=== PATIENT | female | born 1990 | race Caucasian/White ===

== ENCOUNTER 2016-10-22 07:51 | Emergency (ER) | payer OTHER ==
[~2016-10-22] VITALS: Ht 157.5 cm; Wt 68.0 kg
[~2016-10-22 07:51] MED LIST: BACT800T5 PO; CEPH500C3 PO
[2016-10-22 07:52] VITALS: BP 145/86; PULSE 100; RESP 20; TEMP 98.2; O2SAT 98
--- NOTE | 2016-10-22 08:08 | PD ---
HPI Chief Complaint: Oral / Dental Pain or Problem Time Seen by Provider: 08:08 Travel History International Travel<30 days: No Contact w/Intl Traveler<30days: No Traveled to known affect area: No History of Present Illness HPI 26-year-old 31 weeks gravid female presents to the ED for evaluation of 4 day history of upper right dental pain. Gradual onset. Patient endorses several broken teeth and cavities in the area. She denies fever or chills. She denies difficulties swallowing her own secretions. She has been treating with Orajel and Tylenol with only mild improvement of symptoms. Last dose of Tylenol approximately 3 AM. She endorses active movement today. Denies related concerns. Denies chronic health problems, takes vitamins daily. NKDA. PFSH Past Medical History Diminished Hearing: No Immunizations Current: No ?: LMP: 03/18/16 : 3 Para: 1 Miscarriage: 1 : 0 Social History Alcohol Use: No Tobacco Use: No Substance Use: No Allergies-Medications (Allergen,Severity, Reaction): Coded Allergies: No Known Allergies (Verified , 10/22/16) Reported Meds & Prescriptions Reported Meds & Active Scripts Active Magic Mouthwash Adult Liq (Multi-Ingredient Mouthwash/Gargle) 120 Ml Susp 5 Ml SWISH-SWAL ACHS Each 5mL contains: Nystatin 200,000units, Diphenhydramine 4.25mg, Viscous Lidocaine 10mg, Jackson syrup 0.8 mL Augmentin (Amoxicillin-Clavulanate) 875-125 mg Tab 875 Mg PO BID not for use in CrCl <30 ml/min. Review of Systems Except as stated in HPI: all other systems reviewed are Neg Physical Exam Narrative GENERAL: Well-nourished, well-developed tearful female in no acute distress. SKIN: Warm and dry. HEAD: Normocephalic. Atraumatic. EYES: No scleral icterus. No injection or drainage. PERRLA. EOMI. ENT: Pearly kline tympanic membranes bilaterally. Nasal mucosa is moist. Oropharynx without erythema, edema or exudate. The lower palate is soft. Uvula is midline. Airway is patent. DENTAL: Tooth #1 is erupting with mild erythema of the surrounding gingiva. No visible exudates. Multiple dental caries and teeth 2 through 4. NECK: Supple, trachea midline. No JVD or lymphadenopathy. CARDIOVASCULAR: Regular rate and rhythm without murmurs, gallops, or rubs. 2+ DP and radial pulses bilaterally. RESPIRATORY: Breath sounds clear and equal bilaterally. No accessory muscle use. GASTROINTESTINAL: Abdomen gravid, soft, non-tender, nondistended. + Bowel sounds MUSCULOSKELETAL: No cyanosis, or edema. The patient is ambulatory and moves the extremities spontaneously. BACK: Nontender without obvious deformity. No CVA tenderness. Data Data Last Documented VS Vital Signs Date Time Temp Pulse Resp B/P Pulse Ox O2 Delivery O2 Flow Rate FiO2 10/22/16 08:37 86 10/22/16 07:52 98.2 20 145/86 98 Orders Acetaminophen (Tylenol) (10/22/16 08:30) MDM Medical Decision Making Medical Screen Exam Complete: Yes Emergency Medical Condition: Yes Differential Diagnosis Dental caries versus pulpitis versus dentalgia versus dental abscess versus other Narrative Course 26-year-old 31 weeks gravid female presents to the ED for evaluation of 4 day history of upper right dental pain. Gradual onset. Patient endorses broken teeth and cavities in the area. She denies fever or chills. She denies difficulties swallowing her own secretions. She has been treating with Orajel and Tylenol with only mild improvement of symptoms. Last dose of Tylenol approximately 3 AM. She endorses active movement today. Denies related concerns. Vitals reviewed. Patient is tachycardic in triage but this resolved in the exam room. Physical exam reveals dental caries in teeth 2 through 4, tooth 1 is erupting. There is tender erythema of the dental mucosa surrounding teeth 1 and 2. No visible exudates. Physical exam otherwise unremarkable. This is dentalgia. The patient was prescribed Magic mouthwash 4-5 times a day and encouraged to continue with Tylenol administration. She was provided with a prescription for Augmentin for possible early abscess. She was given community resources for dental follow- up. She indicated understanding of instructions, is amenable to that plan of care. She is stable and discharged home. Diagnosis Primary Impression: Dentalgia Referrals: Dentist Patient Instructions: Dental Abscess (ED), Dental Caries (ED), General Instructions Additional Instructions: Rest, hydrate. Take all antibiotics as prescribed, he would've symptoms resolved. Magic mouthwash 4-5 times a day as needed for dental pain. Do not swallow the mouthwash! Tylenol every 4-6 hours as needed for dental pain. Follow-up with the dentist. Return to the ED for any urgent or emergent medical condition. Med/Other Pt SpecificInfo: Prescription(s) given Scripts Hiyappky-Pmzkzzcqljtlecv-Vtxrtyhsp Liq (Magic Mouthwash Adult Liq)120 Ml Susp5 Ml SWISH-SWAL ACHS #120 ML Ref 0 Each 5mL contains: Nystatin 200,000units, Diphenhydramine 4.25mg, Viscous Lidocaine 10mg, Jackson syrup 0.8 mL Prov:Italo Nolen MD 10/22/16 Amoxicillin-Clavulanate (Augmentin)875-125 mg [id number] Mg PO BID #10 TAB Ref 0 not for use in CrCl <30 ml/min. Prov:Italo Nolen MD 10/22/16 Disposition: 01 DISCHARGE HOME Condition: Stable Claire De La Torre Oct 22, 2016 08:08
[2016-10-22] MEDS ORDERED: MAGICADU2 SWISH-SWAL (08:22)
[2016-10-22] MEDS ORDERED: AUGM875T PO (08:22)
[2016-10-22] MEDS ORDERED: ACETAMINOPHEN 325 MG TAB PO ONE (08:30)
[2016-12-20] MEDS ORDERED: OXYC1TAB63 PO (14:22)
[2016-12-20] MEDS ORDERED: IBUP-232 PO (17:27)
== END 2016-10-22 08:39 | disposition home or self-care (01) ==
LOC: NEPB 07:51
DX: K08.89 Other specified disorders of teeth and supporting structures (principal)
CPT/HCPCS: 99282

== ENCOUNTER 2016-12-08 15:52 | Emergency (ER) | payer OTHER ==
[~2016-12-08 15:52] MED LIST changes: +AUGM875T PO; -BACT800T5 PO; -CEPH500C3 PO; +MAGICADU2 SWISH-SWAL
--- NOTE | 2016-12-08 17:10 | PD ---
HPI Chief Complaint Decreased movements, chest pain, vaginal pain Date Seen: Dec 08, 2016 Travel History International Travel<30 Days: No Contact w/Intl Traveler<30Days: No Known Affected Area: No History of Present Illness HPI Patient is a 26-year-old at 37/6 weeks gestation that presents to the [facility] ED with chief complaints of decreased movement over the last week, chest pain, and stabbing vaginal pain. The patient states that the last time she felt her baby move was last night around 11 PM. She has not felt him move today. Patient also complains of intermittent, pressure-like chest pain that began 3 weeks ago. She also describes the pain as heart palpitations, feels like her heart is bigger than her chest. The pain is worse when she lies down and is not associated with food. Nothing has made the pain better. She has tried Tylenol which has not worked. The pain is present when she wakes up in the morning and can last up to 10 minutes at a time. She tries taking deep breaths to relieve the pain but that does not work very well. She also complains of stabbing vaginal pain that is intermittent and headaches which are relieved with Tylenol. She has been seen black spots in her vision. She states that her blood pressure has sometimes been elevated at clinic. She gets care at [facility] with Silvia Pressley. All her labs have been negative or within normal limits. She just had GBS done and results are not out yet The patient denies fever, chills, upper respiratory infection symptoms. She denies dysuria, nausea, vomiting, diarrhea, right upper quadrant abdominal pain. She denies loss of fluid, contractions, vaginal bleeding, and abnormal vaginal discharge/itching. She last had sexual intercourse last week. Para: 2 : 4 Miscarriage: 1 (at 6 weeks) History Past Medical History Medical History: Denies Significant Hx Past Surgical History Surgical History: No Previous Surgery Family History Family History: Negative Social History Alcohol Use: No Tobacco Use: No Substance Abuse: No Allergies-Medications (Allergen,Severity, Reaction): Coded Allergies: No Known Allergies (Verified , 10/22/16) Home Meds Active Scripts Gmzycums-Ebyxjovqbmsnhvc-Howttmtxq Liq (Magic Mouthwash Adult Liq)120 Ml Susp5 Ml SWISH-SWAL ACHS #120 ML Ref 0 Each 5mL contains: Nystatin 200,000units, Diphenhydramine 4.25mg, Viscous Lidocaine 10mg, Jackson syrup 0.8 mL Prov:Italo Nolen MD 10/22/16 Amoxicillin-Clavulanate (Augmentin)875-125 mg [id number] Mg PO BID #10 TAB Ref 0 not for use in CrCl <30 ml/min. Prov:Italo Nolen MD 10/22/16 Physical Exam Narrative GENERAL: Well-nourished, well-developed patient. SKIN: Warm and dry. HEAD: Normocephalic and atraumatic. EYES: No scleral icterus. No injection or drainage. ENT: No nasal drainage noted. Mucous membranes pink. Airway patent. NECK: Supple, trachea midline. No JVD. CARDIOVASCULAR: Regular rate and rhythm without murmurs, gallops, or rubs. RESPIRATORY: Breath sounds equal bilaterally. No accessory muscle use. BREASTS: Bilateral exam showed no masses , no retractions, no nipple discharge. ABDOMEN/GI: Abdomen soft, non-tender, bowel sounds present, no rebound, no guarding Gravid to 37 weeks size Fundal Height: 37cm GENITOURINARY: External Genitalia: intact and normal in appearance Cervix: high and posterior Dilatation: 1cm Effacement: 0% Station: -3 Presentation: cephalic Membranes: Intact Uterine Contractions: None FHT's: Category: 1 Baseline: 145 Reactive: Yes, up to 155 Variability: Moderate Decels: none EXTREMITIES: No cyanosis or edema. BACK: Nontender without obvious deformity. No CVA tenderness. NEUROLOGICAL: Awake and alert. Motor and sensory grossly within normal limits. Five out of 5 muscle strength in all muscle groups. Normal speech. Data Data Vital Signs Reviewed: Yes [facility] Medical Record Reviewed: Yes Interpretation(s) Narrative Course / MDM 26 y/o @37/6 weeks gestation presents with chief complaints of decreased movement, pressure-like chest pain, and stabbing vaginal pain. Patient is tachycardic up to 120 bpm. Initial temp was 100F, now down to 99.1F. Plan -NST - tracing category I, reassuring -Monitored for minimum period of 20 minutes -No contractions on monitor -Offered to send pt to the main ED for workup of chest pain - pt declined -Recommend bed rest and lots of fluid Diagnosis Diagnosis: Primary Impression: Decreased movement during in third trimester, antepartum Qualified Code: O36.8130 - Decreased movement during in third trimester, antepartum, not applicable or unspecified fetus Additional Impressions: Chest pain Qualified Code: R07.9 - Chest pain, unspecified type Vaginal pain Disposition: DISCHARGE HOME Condition: Stable Eko,Domenica Burt MD R1 Dec 08, 2016 17:10
[2016-12-08 17:45] VITALS: PULSE 116
[2016-12-08 17:46] VITALS: TEMP 99.1
[2016-12-08 17:50] VITALS: PULSE 125
[2016-12-08 17:55] VITALS: PULSE 101
[2016-12-08 18:00] VITALS: PULSE 102
[2016-12-08 18:05] VITALS: PULSE 101
--- NOTE | 2016-12-08 18:28 | PD ---
HPI Chief Complaint Decreased movement, vaginal pain, occasional chest pains Date Seen: Dec 08, 2016 Travel History International Travel<30 Days: No Contact w/Intl Traveler<30Days: No Known Affected Area: No History of Present Illness HPI Patient is 26-year-old white female at 37 weeks 6 days presents for decreased movement some mild chest pain and vaginal pain. Denies ruptured membranes or bleeding. She sees [facility] for care. heart rate tracing is reactive and there are no contractions. Para: 2 : 4 History Obstetric History Obstetric History 2 vaginal deliveries and one early loss Social History Alcohol Use: No Tobacco Use: No Substance Abuse: No Allergies-Medications (Allergen,Severity, Reaction): Coded Allergies: No Known Allergies (Verified , 10/22/16) Home Meds Active Scripts Vjqujlig-Nvlntozvqmqpwjm-Yvbtwtdlk Liq (Magic Mouthwash Adult Liq)120 Ml Susp5 Ml SWISH-SWAL ACHS #120 ML Ref 0 Each 5mL contains: Nystatin 200,000units, Diphenhydramine 4.25mg, Viscous Lidocaine 10mg, Jackson syrup 0.8 mL Prov:Italo Nolen MD 10/22/16 Amoxicillin-Clavulanate (Augmentin)875-125 mg [id number] Mg PO BID #10 TAB Ref 0 not for use in CrCl <30 ml/min. Prov:Italo Nolen MD 10/22/16 Review of Systems General / Constitutional: No: Fever, Weight Gain, Chills, Other Eyes: No: Diploplia, Blurred Vision, Visual changes, Pain, Photophobia HENT: No: Headaches, Vertigo, Lightheadedness Cardiovascular: Chest Pain or Discomfort, No: Irregular Rhythm, Palpitations, Tachycardia, Syncope, Varicosities, Edema, Cyanosis Respiratory: No: Cough, Short of Breath, Other Gastrointestinal: Abdominal Pain, No: Nausea, Vomiting, Diarrhea Genitourinary: No: Decreased Urinary Output, Oliguria Musculoskeletal: No: Limited ROM, Weakness, Cramping, Edema, Pain Skin: No Rash, No Itching, No Dryness, No Lumps, No Change in Pigmentation, No Change in Nails, No Alopecia, No Lesions Neurologic: No: Weakness, Dizziness, Syncope, Focal Abnormalities, Coordination Problem, Headache, Slurred Speech, Seizures Psychiatric: No: Depression, Suicidal Ideations, Homicidal Ideation Endocrine: No: Heat Intolerance, Cold Intolerance, Polydipsia, Polyuria, Other Physical Exam Vital Signs Date Time Temp Pulse Resp B/P Pulse Ox O2 Delivery O2 Flow Rate FiO2 12/08/16 18:05 101 12/08/16 18:00 102 12/08/16 17:55 101 12/08/16 17:50 125 12/08/16 17:46 99.1 12/08/16 17:45 116 Narrative GENERAL: Well-nourished, well-developed patient. SKIN: Warm and dry. HEAD: Normocephalic and atraumatic. EYES: No scleral icterus. No injection or drainage. ENT: No nasal drainage noted. Mucous membranes pink. Airway patent. NECK: Supple, trachea midline. No JVD. CARDIOVASCULAR: Regular rate and rhythm without murmurs, gallops, or rubs. RESPIRATORY: Breath sounds equal bilaterally. No accessory muscle use. BREASTS: Bilateral exam showed no masses , no retractions, no nipple discharge. ABDOMEN/GI: Abdomen soft, non-tender, bowel sounds present, no rebound, no guarding Gravid to [38-] weeks size Fundal Height: [-38] GENITOURINARY: External Genitalia: intact and normal in appearance BUS glands: [-] Cervix: [-] Dilatation: [1-] Effacement: [Thick-] Station: [-3] Presentation: [-vtx] Membranes: [intact ] Uterine Contractions: [No regular contractions-] FHT's: Category: [1-] Baseline: [133-] Reactive: [-yes] Variability: [mod-] Decels: [none-] EXTREMITIES: No cyanosis or edema. BACK: Nontender without obvious deformity. No CVA tenderness. NEUROLOGICAL: Awake and alert. Motor and sensory grossly within normal limits. Five out of 5 muscle strength in all muscle groups. Normal speech. Data Data Orders Vital Signs (Adult) .ON ADMISSION (12/08/16 17:44) ^ Labor Status (12/08/16 17:44) ^ Non Stress Test (12/08/16 17:44) ^ Hydration (12/08/16 17:44) MDM Interpretation(s) Patient is 26-year-old white female 37-38 weeks with decreased movement some mild chest pain and vaginal pain today. heart rate tracing is reactive she is not jordana significantly she has no bleeding or leakage of fluid Plan The patient to home bed rest for further go to the emergency room to evaluate her chest discomfort which she didn't really want to do that, her discomfort has been going on quite a while and is sounds, a normal effect and this patient. Her heart rate tracing is reactive cervix is 1 cm and thick and high will discharge home to bedrest Tylenol increase fluids heating pad or hot bath Diagnosis Diagnosis: Primary Impression: Decreased movement during in third trimester, antepartum Qualified Code: O36.8130 - Decreased movement during in third trimester, antepartum, not applicable or unspecified fetus Additional Impression: Chest pain Qualified Code: R07.9 - Chest pain, unspecified type Disposition: 01 DISCHARGE HOME Condition: Stable Patient Instructions: General Instructions Departure Forms: Tests/Procedures Domenico Bartlett II, MD Dec 08, 2016 18:28
[2016-12-20] MEDS ORDERED: OXYC1TAB63 PO (14:22)
[2016-12-20] MEDS ORDERED: IBUP-232 PO (17:27)
== END 2016-12-08 18:58 | disposition home or self-care (01) ==
LOC: HOBED 15:52
DX: O36.8130 Decreased fetal movements, third trimester, not applicable or unspecified (principal); O26.893 Other specified pregnancy related conditions, third trimester; R07.9 Chest pain, unspecified; R10.2 Pelvic and perineal pain; R00.2 Palpitations; R51 Headache; R00.0 Tachycardia, unspecified; Z3A.37 37 weeks gestation of pregnancy
CPT/HCPCS: 99284

== ENCOUNTER 2016-12-15 15:59 | Inpatient (IN) | payer OTHER ==
[2016-12-15] VITALS (10 sets, daily range): BP systolic 117–156; BP diastolic 71–91; PULSE 67–79; RESP 17–18; TEMP 97.6; O2SAT 98
--- NOTE | 2016-12-15 16:06 | PD ---
History of Present Illness Date Seen: Dec 15, 2016 History of Present Illness 6-year-old female at term in active labor 9 cm on admission intact membranes no heart rate tracing is reactive contractions seen. Patient seen and Silvia Pressley for care. Plan is admit the patient anticipate precipitous vaginal delivery Domenico Bartlett II, MD Dec 15, 2016 16:06
--- NOTE | 2016-12-15 16:07 | HHI.HP ---
HPI Chief Complaint Contractions Date Seen: Dec 15, 2016 Travel History International Travel<30 Days: No Contact w/Intl Traveler<30Days: No Known Affected Area: No History of Present Illness HPI Patient is a 26-year-old at 38/6 weeks gestation that presents to the [facility] ED with chief complaint at 11 AM this morning. She denies loss of fluid or vaginal bleeding. She endorses positive movements. Notably, had GBS status is unknown. Para: 2 : 4 Miscarriage: 1 (at 6 weeks) History Past Medical History Medical History: Denies Significant Hx Past Surgical History Surgical History: No Previous Surgery Family History Family History: Negative Social History Alcohol Use: No Tobacco Use: No Substance Abuse: No Allergies-Medications (Allergen,Severity, Reaction): Coded Allergies: No Known Allergies (Verified , 10/22/16) Home Meds Active Scripts Youobtvo-Zrvmfrxvzefuicb-Lhlwqmtga Liq (Magic Mouthwash Adult Liq)120 Ml Susp5 Ml SWISH-SWAL ACHS #120 ML Ref 0 Each 5mL contains: Nystatin 200,000units, Diphenhydramine 4.25mg, Viscous Lidocaine 10mg, Jackson syrup 0.8 mL Prov:Italo Nolen MD 10/22/16 Amoxicillin-Clavulanate (Augmentin)875-125 mg [id number] Mg PO BID #10 TAB Ref 0 not for use in CrCl <30 ml/min. Prov:Italo Nolen MD 10/22/16 Review of Systems Except as stated in HPI: all other systems reviewed are Neg (review of systems difficult to obtain due to patient crying and writhing in pain) Physical Exam Narrative GENERAL: Well-nourished, well-developed patient, crying, appears very uncomfortable SKIN: Warm and dry. HEAD: Normocephalic and atraumatic. EYES: No scleral icterus. No injection or drainage. ENT: No nasal drainage noted. Mucous membranes pink. Airway patent. NECK: Supple, trachea midline. No JVD. CARDIOVASCULAR: Regular rate and rhythm without murmurs, gallops, or rubs. RESPIRATORY: Breath sounds equal bilaterally. No accessory muscle use. ABDOMEN/GI: Abdomen soft, non-tender, bowel sounds present, no rebound, no guarding Gravid to 38 weeks size GENITOURINARY: External Genitalia: intact and normal in appearance Cervix: Soft Dilatation: 8cm Effacement: 80% Station: -2 Presentation: cephalic Membranes: intact Uterine Contractions: present every 1-2 mins FHT's: Category: I Baseline: 120 Reactive: up to 135 Variability: moderate Decels: none EXTREMITIES: No cyanosis or edema. BACK: Nontender without obvious deformity. No CVA tenderness. NEUROLOGICAL: Awake and alert. Motor and sensory grossly within normal limits. Five out of 5 muscle strength in all muscle groups. Normal speech. Data Data Vital Signs Reviewed: Yes Orders Ob (2e) Additional Admit Info (12/15/16 16:01) Assessment/Plan Assessment and Plan Patient is a 26-year-old at 38/6 weeks gestation that presents in active labor. GBS unknown. Intrauterine - tracing was nonreassuring -Contractions present on monitor every 1-2 minutes -Admit to L&D -Continuous monitoring -Anticipate precipitous vaginal delivery Discharge Planning Possibly in the next 2-3 days. Domenica Pearce MD R1 Dec 15, 2016 16:07
[2016-12-15] MEDS ORDERED: OXYTOCIN 30 UNITS-500ML PREMIX 500 ML ONE ×2 (16:10→17:20)
[2016-12-15] MEDS ORDERED: LIDOCAINE HCL 1% 50 ML VIAL ONE (16:10)
[2016-12-15] MEDS ORDERED: LACTATED RINGER'S 1000 ML INJ 1,000 ML IV SCH (16:11)
[2016-12-15] MEDS ORDERED: LACTATED RINGER'S 1000 ML INJ 1,000 ML IV PRN (16:11)
[2016-12-15] MEDS ORDERED: LIDOCAINE HCL 1% 50 ML VIAL I-DERMAL PRN (16:15)
[2016-12-15] MEDS ORDERED: MINERAL OIL 10 ML VIAL TOPICAL PRN (16:15)
[2016-12-15] MEDS ORDERED: SODIUM CHLORID 0.9% 500 ML INJ 500 ML IV PRN (16:15)
[2016-12-15] MEDS ORDERED: LIDOCAINE HCL 1% 50 ML VIAL INFIL PRN (16:15)
[2016-12-15] MEDS ORDERED: CITRIC ACID-SODIUM CITRATE LIQ 30 ML UDC PO SCH (16:15)
[2016-12-15] MEDS ORDERED: OXYTOCIN 30 UNITS-500ML PREMIX 500 ML IV ONE ×2 (16:15→17:30)
[2016-12-15] MEDS ORDERED: SODIUM CHLOR 0.9% 1000 ML INJ 1,000 ML IV PRN (16:31)
--- NOTE | 2016-12-15 16:51 | PD.OB.DELI ---
Delivery Date: Dec 15, 2016 Anesthesia: None Episiotomy: None Vaginal Delivery: Normal Presentation: Occiput anterior Nuchal Cord: x1 (tight) Delayed cord clamping (45 sec): No : Male One Minute : 8 Five Minute : 8 Weight: 3630g Placenta: Spontaneous delivery, Intact, 3 vessel cord Laceration: 1 deg (labial laceration - no repair required) Additional Information 26 delivered vaginally very precipitously. Performed by Dr. Pearce, supervised by Dr. Bartlett. Mom and baby are doing well. Domenica Pearce MD R1 Dec 15, 2016 16:51
[2016-12-15 16:59] LABS: AUTOMATED NEUTROPHIL # 8.1 TH/MM3 (1.8-7.7); BASOPHIL % 0.3 % (0.0-2.0); EOSINOPHIL % 0.4 % (0.0-4.0); HEMATOCRIT 32.3 % (35.0-46.0); LYMPH % 19.7 % (9.0-44.0); LYMPHOCYTE # 2.2 TH/MM3 (1.0-4.8); MEAN CELL VOLUME 69.4 FL (80.0-100.0); MEAN CORPUSCULAR HGB CONC 33.2 % (32.0-36.0); MONO % 6.3 % (0.0-8.0); NEUT % 73.3 % (16.0-70.0); PLATELET COUNT 331 TH/MM3 (150-450); RED BLOOD COUNT 4.65 MIL/MM3 (4.00-5.30); RED CELL DISTRIBUTION WIDTH 17.5 % (11.6-17.2)
[2016-12-15] MEDS ORDERED: ALUMINUM/MAGNESIUM/SIMETH 30 ML CUP PO PRN (17:00)
[2016-12-15] MEDS ORDERED: ZOLPIDEM TARTRATE 5 MG TAB PO PRN (17:00)
[2016-12-15] MEDS ORDERED: WITCH HAZEL 50%/GLYCERIN 12.5% 40 PAD JAR TOPICAL PRN (17:00)
[2016-12-15] MEDS ORDERED: MEASLES, MUMPS, RUBELLA VACCINE 0.5 ML VIAL SQ ONE (17:00)
[2016-12-15] MEDS ORDERED: SODIUM CHLORIDE 0.9% FLUSH 10 ML FLUSH IV FLUSH PRN (17:00)
[2016-12-15] MEDS ORDERED: oxyCODONE/ACETAMINOPHEN 5 MG/325 MG TAB PO PRN (17:00)
[2016-12-15] MEDS ORDERED: ACETAMINOPHEN 325 MG TAB PO PRN (17:00)
[2016-12-15] MEDS ORDERED: fentaNYL CITRATE 250 MCG/5 ML AMP IV PUSH ONE (17:00)
[2016-12-15] MEDS ORDERED: DOCUSATE SODIUM 50 MG/SENNA 8.6 MG TAB PO PRN (17:00)
[2016-12-15] MEDS ORDERED: ONDANSETRON ODT 4 MG TAB PO PRN (17:00)
[2016-12-15] MEDS ORDERED: BENZOCAINE 20% TOPICAL SPRAY 60 ML CAN TOPICAL PRN (17:00)
[2016-12-15 17:02] LABS: HEMO FLAGS AUTO DIFF
[2016-12-15] MEDS: IBUPROFEN 600 MG TAB PO PRN (17:18)
[2016-12-15 17:51] LABS: PLATELET ESTIMATE SMEAR NORMAL (NORMAL); PLATELET MORPHOLOGY NORMAL (NORMAL); SCAN/DIFF AUTO DIFF CONFIRMED
[2016-12-15] MEDS ORDERED: DIPHTH/TETANUS/ACEL PERTUSSIS (BOOSTER) 0.5 ML VIAL/PFS IM ONE (18:00)
[2016-12-15] MEDS: oxyCODONE/ACETAMINOPHEN 5 MG/325 MG TAB PO PRN (19:33)
[2016-12-15] MEDS ORDERED: SODIUM CHLORIDE 0.9% FLUSH 10 ML FLUSH IV FLUSH SCH (21:00)
[2016-12-16] MEDS: oxyCODONE/ACETAMINOPHEN 5 MG/325 MG TAB PO PRN ×3 (00:45→14:48)
[2016-12-16] MEDS: IBUPROFEN 600 MG TAB PO PRN ×3 (00:46→14:48)
--- NOTE | 2016-12-16 07:17 | HHI.OB ---
Subjective Post Day: 1 Remarks day #1. AFVSS overnight. Pain well-controlled. Lochia like a period. Denies dysuria. She is feeding the baby via mostly by breast milk. Appetite good. No nausea or vomiting. Positive flatus. No bowel movement. Ambulating well. Denies calf pain, shortness of breath, or cough. Otherwise, she is doing well this morning and has no other complaints. Objective Vitals/I&O Vital Signs Date Time Temp Pulse Resp B/P Pulse Ox O2 Delivery O2 Flow Rate FiO2 12/15/16 19:26 97.6 69 17 117/75 98 12/15/16 18:05 123/80 12/15/16 18:00 68 12/15/16 17:50 118/71 12/15/16 17:35 67 18 117/73 12/15/16 17:20 18 12/15/16 17:16 73 156/91 12/15/16 17:05 97.6 12/15/16 17:02 79 151/87 12/15/16 16:56 76 143/77 Objective Remarks GENERAL: Well-nourished, well-developed patient. CARDIOVASCULAR: Regular rate and rhythm without murmurs, gallops, or rubs. RESPIRATORY: Breath sounds equal bilaterally. No accessory muscle use. ABDOMEN/GI: Abdomen soft, non-tender. Fundus: Firm, non-tender at umbilicus. GENITOURINARY: Light to moderate bleeding. EXTREMITIES: No cyanosis or edema, non-tender, without signs of DVT. Medications and IVs Current Medications Medications (Trade) Dose Ordered Sig/[facility] Route Start Time Stop Time Status Last Admin (NS Flush) 2 ml BID IV FLUSH 12/15/16 21:00 (NS Flush) 2 ml UNSCH PRN IV FLUSH 12/15/16 17:00 (Tylenol) 650 mg Q4H PRN PO 12/15/16 17:00 (Motrin) 600 mg Q6H PRN PO 12/15/16 17:00 12/16/16 00:46 (Percocet 5-325 Mg) 1 tab Q4H PRN PO 12/15/16 17:00 12/16/16 00:45 (Percocet 5-325 Mg) 2 tab Q4H PRN PO 4/12/17 17:00 (Americaine 20% Top Spr) 1 spray Q4H PRN TOPICAL 12/15/16 17:00 (Tucks Pads) 1 applic QID PRN TOPICAL 12/15/16 17:00 (Bria-Colace) 2 tab Q12H PRN PO 12/15/16 17:00 (Ambien) 5 mg HS PRN PO 12/15/16 17:00 (Mag-Al Plus Susp Liq) 15 ml Q8H PRN PO 12/15/16 17:00 (Zofran Odt) 4 mg Q6H PRN PO 12/15/16 17:00 Assessment/Plan Assessment and Plan 26 y/o female who is PPD# 1 s/p precipitous -Continue routine care -Motrin PRN for pain -Pericolase PRN for constipation -Encouraged OOB. Advised pelvic rest for 6 wks -Will need a follow-up appointment within 6 wks -Re: ctrl - patient is undecided -D/c most likely tomorrow Discussed with Dr. Bartlett Discharge Planning Possibly the next day. Domenica Pearce MD R1 Dec 16, 2016 07:17
[2016-12-16 08:20] VITALS: BP 115/70; PULSE 80; RESP 16; TEMP 98.1
[2016-12-16 21:00] VITALS: BP 113/72; PULSE 86; RESP 18; TEMP 97.8
[2016-12-17] VITALS: BP 123/72; PULSE 76; RESP 18; TEMP 98
[2016-12-17] MEDS ORDERED: OXYC1TAB63 PO (06:46)
[2016-12-17] MEDS ORDERED: IBUP-232 PO (06:46)
--- NOTE | 2016-12-17 06:47 | HHI.DCPOC ---
Discharge Care Plan Diagnosis: (1) Normal vaginal delivery Report Symptoms to Your Doctor -Temperate above 100.5 degrees -Redness, of incision or excessive or foul smelling drainage -Unusual pain or calf pain -Increased vaginal bleeding -Painful or difficulty urinating -Feelings of extreme sadness or anxiety after 2 weeks Goals to Promote Your Health * To prevent worsening of your condition and complications * To maintain your health at the optimal level Directions to Meet Your Goals Take your medications as prescribed Follow your dietary instruction Follow activity as directed Ensure plenty of rest for recovery Drink fluids for hydration Keep your appointments as scheduled Take your immunizations and boosters as scheduled If your symptoms worsen call your PCP, if no PCP go to Urgent Care Center or Emergency Room Smoking is Dangerous to Your Health. Avoid second hand smoke Call the 24-hour crisis hotline for domestic abuse at Domenica Pearce MD R1 Dec 17, 2016 06:47
--- NOTE | 2016-12-17 07:14 | HHI.OB ---
Subjective Post Day: 2 Remarks day #2. AFVSS overnight. Pain well-controlled. Lochia less than a period. Denies dysuria. She is feeding the baby via mostly by breast milk. Appetite good. No nausea or vomiting. Positive flatus. No bowel movement. Ambulating well. Denies calf pain, shortness of breath, or cough. Otherwise, she is doing well this morning and has no other complaints. (Eko,Domenica U R1 ) Objective Vitals/I&O Vital Signs Date Time Temp Pulse Resp B/P Pulse Ox O2 Delivery O2 Flow Rate FiO2 12/17/16 00:00 98.0 76 18 123/72 12/16/16 21:00 113/72 12/16/16 21:00 97.8 86 18 12/16/16 08:20 98.1 80 16 115/70 Objective Remarks GENERAL: Well-nourished, well-developed patient. CARDIOVASCULAR: Regular rate and rhythm without murmurs, gallops, or rubs. RESPIRATORY: Breath sounds equal bilaterally. No accessory muscle use. ABDOMEN/GI: Abdomen soft, non-tender. Fundus: Firm, non-tender at umbilicus. GENITOURINARY: Light to moderate bleeding. EXTREMITIES: No cyanosis or edema, non-tender, without signs of DVT. Medications and IVs Current Medications Medications (Trade) Dose Ordered Sig/Caterina Route Start Time Stop Time Status Last Admin (NS Flush) 2 ml BID IV FLUSH 12/15/16 21:00 (NS Flush) 2 ml UNSCH PRN IV FLUSH 12/15/16 17:00 (Tylenol) 650 mg Q4H PRN PO 12/15/16 17:00 (Motrin) 600 mg Q6H PRN PO 12/15/16 17:00 12/16/16 14:48 (Percocet 5-325 Mg) 1 tab Q4H PRN PO 12/15/16 17:00 12/16/16 14:48 (Percocet 5-325 Mg) 2 tab Q4H PRN PO 12/15/16 17:00 (Americaine 20% Top Spr) 1 spray Q4H PRN TOPICAL 12/15/16 17:00 (Tucks Pads) 1 applic QID PRN TOPICAL 12/15/16 17:00 (Bria-Colace) 2 tab Q12H PRN PO 12/15/16 17:00 12/16/16 14:48 (Ambien) 5 mg HS PRN PO 12/15/16 17:00 (Mag-Al Plus Susp Liq) 15 ml Q8H PRN PO 12/15/16 17:00 (Zofran Odt) 4 mg Q6H PRN PO 12/15/16 17:00 (Domenica Pearce MD R1) Assessment/Plan Assessment and Plan 26 y/o female who is PPD# 2 s/p precipitous -Continue routine care -Motrin PRN for pain -Pericolase PRN for constipation -Encouraged OOB. Advised pelvic rest for 6 wks -Will need a follow-up appointment within 6 wks -Re: ctrl - patient is undecided -D/c today Discussed with Dr. Chen Discharge Planning Anticipate discharge today (Domenica Pearce MD R1) Attending Attestation The exam, history, and the medical decision-making described in the above note were completed with the assistance of the resident provider. I reviewed and agree with the findings presented. I attest that I had a [id number] encounter with the patient on the same day, and personally performed and documented my assessment and findings in the medical record. (Lien Chen MD) Domenica Pearce MD R1 Dec 17, 2016 07:13 Lien Chen MD Dec 17, 2016 11:09
[2016-12-17 08:00] VITALS: BP 123/78; PULSE 64; RESP 17; TEMP 98.4
[2016-12-17] MEDS: IBUPROFEN 600 MG TAB PO PRN (10:11)
[2016-12-20] MEDS ORDERED: OXYC1TAB63 PO (14:22)
[2016-12-20] MEDS ORDERED: IBUP-232 PO (17:27)
== END 2016-12-17 12:46 | disposition home or self-care (01) | DRG 775 ==
LOC: HOBED 15:59 → H2EB 16:01 → H1EA 18:27
PROVIDERS: ADMIT Obstetrics & Gynecology Maternal & Fetal Medicine; ATTEND Obstetrics & Gynecology Maternal & Fetal Medicine
PROC: 10E0XZZ Delivery of Products of Conception, External Approach (ICD-10-PCS; principal; 2016-12-15)
PROC: 0HQ9XZZ Repair Perineum Skin, External Approach (ICD-10-PCS; 2016-12-15)
DX: O62.3 Precipitate labor (principal); O69.1XX0 Labor and delivery complicated by cord around neck, with compression, not applicable or unspecified; O70.0 First degree perineal laceration during delivery; Z3A.38 38 weeks gestation of pregnancy; Z37.0 Single live birth
CPT/HCPCS: 59025; 85025; 90715; 99285; J2590; J3010

== ENCOUNTER 2018-06-16 09:16 | Inpatient (IN) ==
--- NOTE | 2018-06-16 10:14 | ED ---
History of Present Illness Primary Care Physician: No Primary Care Physician Silvia Pressley History of Present Illness: at 39 weeks 1 day, presents sent from office for symptomatic anemia of . Last hemoglobin on file is 8.8, 2 weeks ago. OB history in this : Anemia of , originally hemoglobin 11.1 drop to 8.8 per record review Sciatica of , severe pain causing bedrest OB history: x3: Last VD in 2017, 10lb, LGA induction anemia in prior medhx: sciatica as above surghx: none meds: PNV all: none Review of Systems All other systems reviewed negative except as stated in HPI PMFSH - History History Provided By: Patient - Travel History Recent Travel in the [place] Within the Last 8 Weeks: No Recent Travel Out of the Country Within the Last 8 Weeks: No Medications and Allergies Allergies Allergy/AdvReac Type Severity Reaction Status Date / Time No Known Allergies Allergy Verified 06/16/18 09:41 Home Medications Medication Instructions Recorded Confirmed Type 1 tab PO TID 06/16/18 06/16/18 History Exam Vital signs: Vital Signs 06/16/18 09:38 Pulse Rate 86 Blood Pressure 116/73 Intake & Output 06/15/18 06/16/18 06/16/18 18:59 06:59 18:59 Weight 77 kg Narrative: GENERAL: Well-nourished, well-developed patient. SKIN: Warm and dry. HEAD: Normocephalic and atraumatic. EYES: No scleral icterus. No injection or drainage. ENT: No nasal drainage noted. Mucous membranes pink. Airway patent. NECK: Supple, trachea midline. No JVD. CARDIOVASCULAR: Regular rate and rhythm without murmurs, gallops, or rubs. RESPIRATORY: Breath sounds equal bilaterally. No accessory muscle use. ABDOMEN/GI: Abdomen soft, non-tender, bowel sounds present, no rebound, no guarding Gravid to 40 weeks size Fundal Height: 40 SVE: 4/50/-3 posterior, soft GENITOURINARY: External Genitalia: intact and normal in appearance FHT's: Baseline 130, positive accelerations, no decelerations [place]: Irregular contractions EXTREMITIES: No cyanosis or edema. BACK: Nontender without obvious deformity. No CVA tenderness. NEUROLOGICAL: Awake and alert. Motor and sensory grossly within normal limits. Five out of 5 muscle strength in all muscle groups. Normal speech. Results - Labs CBC & Chem 7: 06/16/18 10:13 Assessment and Plan - Diagnosis (1) 39 weeks gestation of Code(s): Z3A.39 - 39 weeks gestation of Status: Acute Plan: at 39 weeks 1 day, presents sent from office for symptomatic anemia of . -Stat CBC: Hemoglobin 8.5, stable from 8.8 prior -Contractions on monitor, 4 cm on exam today, multipara -Admit for augmentation of labor for symptomatic anemia and multi-at term -Start Pitocin -Admission orders in -f/u stat GBS PCR (2) Symptomatic anemia Code(s): D64.9 - Anemia, unspecified Status: Acute Plan: Continue to f/u CBC Will have cytotec 1000 in room for delivery Discharge Plan - Physicians Team Primary Care Provider: Primary Care Kenisha Durham Attending Provider: Tova Grey - Rxs /Orders / Referrals /Forms Prescriptions: No Action 1 tab PO TID Referrals: Primary Care Kenisha Durham [Primary Care Provider] - See Instructions
[2018-06-16 11:06] LABS: Baso # (Auto) 0.1 th/mm3 (0.0-0.2); Baso % (Auto) 0.6 % (0.0-2.0); Eos # (Auto) 0.2 th/mm3 (0.0-0.4); Eos % (Auto) 1.6 % (0.0-4.0); Hematocrit 26.3 % (35.0-46.0); Hemoglobin 8.7 gm/dL (11.6-15.3); Lymph # (Auto) 2.3 th/mm3 (1.0-4.8); Lymph % (Auto) 21.6 % (9.0-44.0); Mean Corpuscular HGB Conc 33.1 % (32.0-36.0); Mean Corpuscular Hemoglobin 23.1 pg (27.0-34.0); Mean Corpuscular Volume 69.8 fL (80.0-100.0); Mean Platelet Volume 7.8 fL (7.0-11.0); Mono # (Auto) 0.6 th/mm3 (0.0-0.9); Neut # (Auto) 7.5 th/mm3 (1.8-7.7); Neut % (Auto) 70.2 % (16.0-70.0); Platelet Count 292 th/mm3 (150-450); Red Blood Count 3.77 mil/mm3 (4.00-5.30); Red Cell Distribution Width 16.4 % (11.6-17.2); White Blood Count 10.8 th/mm3 (4.0-11.0)
[2018-06-16] MEDS ORDERED: Oxytocin 30 Units/500ml Premix 30 UNITS/500 ML BAG IV.SIG PRN ×2 (11:59→16:31)
[2018-06-16] MEDS ORDERED: Citric Acid/Sodium Citrate Liq 30 ML UDC PO SCH (12:00)
--- NOTE | 2018-06-16 12:52 | P.HPOB ---
Patient: Nya Castaneda MR#: [id number] : 1990 Acct:[id number] Age/Sex: 27 / F ADM Date: 06/16/18 Loc: H2E 200-A Date of Service: 06/16/[address]: Tova Grey MD cc: ~ History of Present Illness Primary Care Physician: No Primary Care Physician Silvia Pressley History of Present Illness: at 39 weeks 1 day, presents sent from office for symptomatic anemia of . Last hemoglobin on file is 8.8, 2 weeks ago. OB history in this : Anemia of , originally hemoglobin 11.1 drop to 8.8 per record review Sciatica of , severe pain causing bedrest OB history: x3: Last VD in 2017, 10lb, LGA induction anemia in prior medhx: sciatica as above surghx: none meds: PNV all: none Review of Systems All other systems reviewed negative except as stated in HPI PMFSH - History History Provided By: Patient - Travel History Recent Travel in the [place] Within the Last 8 Weeks: No Recent Travel Out of the Country Within the Last 8 Weeks: No Medications and Allergies Allergies Allergy/AdvReac Type Severity Reaction Status Date / Time No Known Allergies Allergy Verified 06/16/18 09:41 Home Medications Medication Instructions Recorded Confirmed Type 1 tab PO TID 06/16/18 06/16/18 History Exam Vital signs: Vital Signs 06/16/18 09:38 Pulse Rate 86 Blood Pressure 116/73 Intake & Output 06/15/18 06/16/18 06/16/18 18:59 06:59 18:59 Weight 77 kg Narrative: GENERAL: Well-nourished, well-developed patient. SKIN: Warm and dry. HEAD: Normocephalic and atraumatic. EYES: No scleral icterus. No injection or drainage. ENT: No nasal drainage noted. Mucous membranes pink. Airway patent. NECK: Supple, trachea midline. No JVD. CARDIOVASCULAR: Regular rate and rhythm without murmurs, gallops, or rubs. RESPIRATORY: Breath sounds equal bilaterally. No accessory muscle use. ABDOMEN/GI: Abdomen soft, non-tender, bowel sounds present, no rebound, no guarding Gravid to 40 weeks size Fundal Height: 40 SVE: 4/50/-3 posterior, soft GENITOURINARY: External Genitalia: intact and normal in appearance FHT's: Baseline 130, positive accelerations, no decelerations [place]: Irregular contractions EXTREMITIES: No cyanosis or edema. BACK: Nontender without obvious deformity. No CVA tenderness. NEUROLOGICAL: Awake and alert. Motor and sensory grossly within normal limits. Five out of 5 muscle strength in all muscle groups. Normal speech. Results - Labs CBC & Chem 7: 06/16/18 10:13 Assessment and Plan - Diagnosis (1) 39 weeks gestation of Code(s): Z3A.39 - 39 weeks gestation of Status: Acute Plan: at 39 weeks 1 day, presents sent from office for symptomatic anemia of . -Stat CBC: Hemoglobin 8.5, stable from 8.8 prior -Contractions on monitor, 4 cm on exam today, multipara -Admit for augmentation of labor for symptomatic anemia and multi-at term -Start Pitocin -Admission orders in -f/u stat GBS PCR (2) Symptomatic anemia Code(s): D64.9 - Anemia, unspecified Status: Acute Plan: Continue to f/u CBC Will have cytotec 1000 in room for delivery Of note patient was quite concerned regarding her history of anemia and hemorrhage although denies any history of hemorrhage with previous delivery. Discussed with the patient will have medication available i.e. utero tonics postdelivery. Discussed with the patient induction of labor since she is a multi para with a cervix that is 4 cm and a history of precipitous labor but I did not feel comfortable sending her home patient agrees with management we are awaiting her GBS PCR prior to Augmentation
[2018-06-16 13:11] LABS: Bacteria,Urine Many /hpf; Bilirubin,Urine Negative (Negative); Clarity,Urine Cloudy (Clear); Color,Urine Yellow (Yellw/Straw); Glucose,Urine (UA) Negative (Negative); Leukocyte Esterase,Urine Large (Negative); Nitrite,Urine Negative (Negative); Squamous Epithelial Cell,Urine 9 /hpf (0-5)
[2018-06-16 13:15] LABS: Amphetamine Screen,Urine Neg (Neg); Barbiturate Screen,Urine Neg (Neg); Cannabinoid Screen,Urine Neg (Neg); Cocaine Screen,Urine Neg (Neg); Opiate Screen,Urine Neg (Neg)
[2018-06-16] MEDS ORDERED: fentaNYL 2MCG-Bupiv 0.125% Epi 150 ML EPIDURAL ONE (14:31)
[2018-06-16] MEDS ORDERED: Lidocaaine 1.5%/Epinephrine 1:200,000 PF Inj 5 ML Amp ONE (14:42)
[2018-06-16] MEDS ORDERED: Lidocaine PF 1% Inj 5 ML Vial ONE (14:43)
[2018-06-16] MEDS ORDERED: fentaNYL Citrate Inj 100 MCG/2 ML Ampul EPIDURAL ONE (16:00)
[2018-06-16] MEDS ORDERED: fentaNYL 2MCG-Bupiv 0.125% Epi 150 ML EPIDURAL PRN (16:00)
--- NOTE | 2018-06-16 19:38 | P.OBDELI ---
Patient Started Active Labor: Yes Medical Induction of Labor: Yes Artificial Rupture of Membrane: Yes Anesthesia: Epidural Episiotomy: none Vaginal Delivery: Normal Presentation: Occiput anterior Nuchal Cord: None Delayed Cord Clamping (45 sec): Yes Placenta: Spontaneous delivery Laceration: None Estimated blood loss (mL): 200 : Female Additional Information: Apgars 9/9 3705 grams
[2018-06-16] MEDS ORDERED: Oxytocin 30 Units/500ml Premix 30 UNITS/500 ML BAG IV.CONT PRN (19:57)
[2018-06-16] MEDS ORDERED: Benzocaine 20% Top Spray 60 ML Can TOPICAL PRN (19:57)
[2018-06-16] MEDS ORDERED: Witch Hazel 50%/Glyderin 12.5% 40 Pad Jar RECTAL PRN (19:57)
[2018-06-16] MEDS ORDERED: Zolpidem Tartrate 5 MG Tablet PO PRN (19:57)
[2018-06-16] MEDS ORDERED: Naloxone Inj 0.4 MG/ML Vial IV.PUSH PRN (19:57)
[2018-06-16] MEDS ORDERED: Bisacodyl 10 MG Supp RECTAL PRN (19:57)
[2018-06-16] MEDS ORDERED: Measles/Mumps/Rubella Vaccine Inj 0.5 ML Vial SQ ONE (21:00)
[2018-06-16] MEDS ORDERED: Diphtheria/Tetanus/Pertussis Vaccine Inj 0.5 ML Syringe IM ONE (21:00)
[2018-06-17] MEDS: Senna/Docusate Sodium 8.6/50 MG Tablet PO SCH ×2 (00:48→08:09)
[2018-06-17] MEDS: Acetaminophen 325 MG Tablet PO PRN (01:42)
--- NOTE | 2018-06-17 09:43 | P.PNOB ---
Subjective Post day: 1 Interval history: day # 1. AFVSS overnight. Pain well controlled. Decreased lochia. Denies dysuria. No breast tenderness. She is feeding the baby via breast. Appetite good. No nausea or vomiting. + flatus. no bowel movement. Ambulating well. Denies calf pain, shortness of breath, or cough. Otherwise, she is doing well this morning and has no other complaints. Objective Vital Signs/I&O: Vital Signs 06/16/18 09:55 06/16/18 10:55 06/16/18 12:05 Temperature Pulse Rate 93 H 89 87 Respiratory Rate 18 Blood Pressure 118/62 06/16/18 14:38 06/16/18 14:45 06/16/18 14:50 Temperature 98.2 F Pulse Rate 78 80 Respiratory Rate 18 Blood Pressure 111/75 112/67 06/16/18 15:13 06/16/18 15:16 06/16/18 15:20 Temperature Pulse Rate 81 81 81 Respiratory Rate Blood Pressure 119/69 116/77 117/65 06/16/18 15:31 06/16/18 15:45 06/16/18 16:01 Temperature Pulse Rate 75 83 75 Respiratory Rate Blood Pressure 117/62 109/69 105/58 L 06/16/18 16:16 06/16/18 16:30 06/16/18 17:00 Temperature 97.5 F L Pulse Rate 73 83 76 Respiratory Rate 18 18 Blood Pressure 96/50 L 114/70 115/66 06/16/18 17:15 06/16/18 17:30 06/16/18 18:00 Temperature Pulse Rate 73 76 80 Respiratory Rate Blood Pressure 105/67 102/64 108/67 06/16/18 18:15 06/16/18 18:30 06/16/18 18:45 Temperature Pulse Rate 79 71 81 Respiratory Rate Blood Pressure 107/63 116/84 112/76 06/16/18 19:16 06/16/18 19:39 06/16/18 19:45 Temperature Pulse Rate 101 H 70 Respiratory Rate 18 Blood Pressure 119/83 116/76 06/16/18 20:00 06/16/18 20:15 06/16/18 20:31 Temperature 97.9 F Pulse Rate 66 83 Respiratory Rate 18 Blood Pressure 119/74 108/76 06/16/18 21:00 06/17/18 08:00 Temperature 98.0 F 97.9 F Pulse Rate 71 65 Respiratory Rate 17 18 Blood Pressure 120/69 99/66 L Intake & Output 06/16/18 06/17/18 06/17/18 18:59 06:59 18:59 Weight 77 kg Result Diagrams: 06/16/18 10:13 Objective Remarks: GENERAL: Well-nourished, well-developed patient. CARDIOVASCULAR: Regular rate and rhythm without murmurs, gallops, or rubs. RESPIRATORY: Breath sounds equal bilaterally. No accessory muscle use. ABDOMEN/GI: Abdomen soft, non-tender. Fundus: Firm, non-tender at umbilicus. GENITOURINARY: Light to moderate bleeding. EXTREMITIES: No cyanosis or edema, non-tender, without signs of DVT. Medications and IVs: Active Medications Acetaminophen (Tylenol) 650 mg PO Q4H PRN PRN Reason: PAIN SCALE 1 TO 2 Last Admin: 06/17/18 01:42 Dose: 650 mg Al Hydroxide/Mg Hydroxide (Milk Of Magnesia Liq) 30 ml PO Q12H PRN PRN Reason: Mild Constipation Benzocaine (Americaine 20% Top [place]) 1 spray TOPICAL Q4H PRN PRN Reason: For Perineum Discomfort Bisacodyl (Dulcolax Supp) 10 mg RECTAL DAILY PRN PRN Reason: SEVERE CONSITIPATION Citric Acid/Sodium Citrate (Sodium Citrate/Citric Acid Liq) 30 ml PO OIL [employer] [facility] Stop: 06/20/18 11:59 Ephedrine Sulfate (Ephedrine/Ns Syringe) 10 mg IV.PUSH UNSCH PRN PRN Reason: SEE LABEL COMMENTS Stop: 06/17/18 15:41 Lactated Ringer's (Lr 1000 Ml Inj) 1,000 mls @ 150 mls/hr IV.CONT .Q6H40M [facility] Last Admin: 06/16/18 19:44 Dose: Not Given Fentanyl/Bupivacaine/Sodium Chlor (Fentanyl 2 Mcg-Bupiv 0.125% Epi) 150 mls @ 10 mls/hr EPIDURAL PRN PRN PRN Reason: for Labor Pain Oxytocin (Pitocin 30 Units/Ns 500 Ml Premix) 30 units in 500 mls @ 2 mls/hr IV.SIG TITRATE PRN; Protocol PRN Reason: For induction of labor Last Admin: 06/16/18 17:02 Dose: 2 milliunit/min, 2 mls/hr Oxytocin (Pitocin 30 Units/Ns 500 Ml Premix) 30 units in 500 mls @ 100 mls/hr IV.CONT UNSCH PRN PRN Reason: Heavy bleeding Ibuprofen (Motrin) 800 mg PO Q8H PRN PRN Reason: For Cramping Last Admin: 06/17/18 03:50 Dose: 800 mg Lactulose (Lactulose Liq) 30 ml PO DAILY PRN PRN Reason: SEVERE CONSITIPATION Miscellaneous Information (Misc Information) 1 each OTHER UNSCH PRN PRN Reason: SEE LABEL COMMENTS Stop: 06/17/18 15:41 Miscellaneous Information (Misc Information) 1 each OTHER UNSCH PRN PRN Reason: SEE LABEL COMMENTS Stop: 06/17/18 15:41 Naloxone HCl (Narcan Inj) 0.1 mg IV.PUSH Q2M PRN PRN Reason: for opiate reversal Ondansetron HCl (Zofran Odt) 4 mg PO Q6H PRN PRN Reason: NAUSEA OR VOMITING Oxycodone/Acetaminophen (Percocet 5/325 Mg) 1 tab PO Q4H PRN PRN Reason: PAIN SCALE 3-5 Last Admin: 06/17/18 08:09 Dose: 1 tab Oxycodone/Acetaminophen (Percocet 5/325 Mg) 2 tab PO Q4H PRN PRN Reason: PAIN SCALE 6-10 Senna/Docusate Sodium (Bria-Colace) 1 tab PO BID [facility] Last Admin: 06/17/18 08:09 Dose: 1 tab Sennosides (Senokot) 17.2 mg PO Q12H PRN PRN Reason: Moderate Constipation Sodium Chloride (Ns Flush) 2 ml IV.FLUSH BID [facility] Last Admin: 06/16/18 21:17 Dose: Not Given Sodium Chloride (Ns Flush) 2 ml IV.FLUSH UNSCH PRN PRN Reason: FLUSH AFTER USING IV ACCESS Witch Nancy/Glycerin (Tucks Pads) 1 applicatio RECTAL QID PRN PRN Reason: HEMORRHOIDS Zolpidem Tartrate (Ambien) 5 mg PO HS PRN PRN Reason: SLEEP Assessment and Plan - Diagnosis (1) 39 weeks gestation of Code(s): Z3A.39 - 39 weeks gestation of Status: Acute (2) Symptomatic anemia Code(s): D64.9 - Anemia, unspecified Status: Acute - Plan 28 y/o who is PPD# 1 s/p . -Continue routine care. -Tylenol and Motrin PRN pain. -Encouraged OOB. Advised pelvic rest for 6 wks. -Will need a f/u appt. within 6 wks. -Re: ctrl, she would like a tubal ligation. She is still considering other options to have in the mean time. -D/c tomorrow. wdw Dr. Wilcox
[2018-06-18] MEDS: Senna/Docusate Sodium 8.6/50 MG Tablet PO SCH (08:12)
--- NOTE | 2018-06-18 08:20 | P.PNOB ---
Subjective Post day: 2 Interval history: day # 2. AFVSS overnight. Pain well-controlled. Decreased lochia. Denies dysuria. No breast tenderness. She is feeding the baby via breast/ bottle. Appetite good. No nausea or vomiting. + flatus. - bowel movement. Ambulating well. Denies calf pain, shortness of breath, or cough. Otherwise, she is doing well this morning and has no other complaints. Objective Vital Signs/I&O: Vital Signs 06/17/18 20:00 Temperature 98.3 F Pulse Rate 71 Respiratory Rate 18 Blood Pressure 118/69 Result Diagrams: 06/16/18 10:13 Objective Remarks: GENERAL: Well-nourished, well-developed patient. CARDIOVASCULAR: Regular rate and rhythm without murmurs, gallops, or rubs. RESPIRATORY: Breath sounds equal bilaterally. No accessory muscle use. ABDOMEN/GI: Abdomen soft, non-tender. Fundus: Firm, non-tender at umbilicus. GENITOURINARY: Light to moderate bleeding. EXTREMITIES: No cyanosis or edema, non-tender, without signs of DVT. Medications and IVs: Active Medications Acetaminophen (Tylenol) 650 mg PO Q4H PRN PRN Reason: PAIN SCALE 1 TO 2 Last Admin: 06/17/18 01:42 Dose: 650 mg Al Hydroxide/Mg Hydroxide (Milk Of Magnesia Liq) 30 ml PO Q12H PRN PRN Reason: Mild Constipation Benzocaine (Americaine 20% Top [place]) 1 spray TOPICAL Q4H PRN PRN Reason: For Perineum Discomfort Bisacodyl (Dulcolax Supp) 10 mg RECTAL DAILY PRN PRN Reason: SEVERE CONSITIPATION Citric Acid/Sodium Citrate (Sodium Citrate/Citric Acid Liq) 30 ml PO [employer] [facility] Stop: 06/20/18 11:59 Lactated Ringer's (Lr 1000 Ml Inj) 1,000 mls @ 150 mls/hr IV.CONT .Q6H40M [facility] Last Admin: 06/17/18 16:08 Dose: Not Given Fentanyl/Bupivacaine/Sodium Chlor (Fentanyl 2 Mcg-Bupiv 0.125% Epi) 150 mls @ 10 mls/hr EPIDURAL PRN PRN PRN Reason: for Labor Pain Oxytocin (Pitocin 30 Units/Ns 500 Ml Premix) 30 units in 500 mls @ 2 mls/hr IV.SIG TITRATE PRN; Protocol PRN Reason: For induction of labor Last Admin: 06/16/18 17:02 Dose: 2 milliunit/min, 2 mls/hr Oxytocin (Pitocin 30 Units/Ns 500 Ml Premix) 30 units in 500 mls @ 100 mls/hr IV.CONT UNSCH PRN PRN Reason: Heavy bleeding Ibuprofen (Motrin) 800 mg PO Q8H PRN PRN Reason: For Cramping Last Admin: 06/18/18 06:04 Dose: 800 mg Lactulose (Lactulose Liq) 30 ml PO DAILY PRN PRN Reason: SEVERE CONSITIPATION Naloxone HCl (Narcan Inj) 0.1 mg IV.PUSH Q2M PRN PRN Reason: for opiate reversal Ondansetron HCl (Zofran Odt) 4 mg PO Q6H PRN PRN Reason: NAUSEA OR VOMITING Oxycodone/Acetaminophen (Percocet 5/325 Mg) 1 tab PO Q4H PRN PRN Reason: PAIN SCALE 3-5 Last Admin: 06/17/18 15:13 Dose: 1 tab Oxycodone/Acetaminophen (Percocet 5/325 Mg) 2 tab PO Q4H PRN PRN Reason: PAIN SCALE 6-10 Senna/Docusate Sodium (Bria-Colace) 1 tab PO BID [facility] Last Admin: 06/18/18 08:12 Dose: 1 tab Sennosides (Senokot) 17.2 mg PO Q12H PRN PRN Reason: Moderate Constipation Sodium Chloride (Ns Flush) 2 ml IV.FLUSH BID [facility] Last Admin: 06/18/18 08:12 Dose: Not Given Sodium Chloride (Ns Flush) 2 ml IV.FLUSH UNSCH PRN PRN Reason: FLUSH AFTER USING IV ACCESS Witch [place]/Glycerin (Tucks Pads) 1 applicatio RECTAL QID PRN PRN Reason: HEMORRHOIDS Zolpidem Tartrate (Ambien) 5 mg PO HS PRN PRN Reason: SLEEP Assessment and Plan - Diagnosis (1) 39 weeks gestation of Code(s): Z3A.39 - 39 weeks gestation of Status: Acute Plan: at 39 weeks 1 day, presents sent from office for symptomatic anemia of . -Stat CBC: Hemoglobin 8.5, stable from 8.8 prior -Contractions on monitor, 4 cm on exam today, multipara -Admit for augmentation of labor for symptomatic anemia and multi-at term -Start Pitocin -Admission orders in -f/u stat GBS PCR (2) Symptomatic anemia Code(s): D64.9 - Anemia, unspecified Status: Acute Plan: Continue to f/u CBC Will have cytotec 1000 in room for delivery - Plan 28 y/o who is PPD# 2 s/p . -Continue routine care. -Tylenol and Motrin PRN pain. -Encouraged OOB. Advised pelvic rest for 6 wks. -Will need a f/u appt. within 6 wks. -Re: ctrl, she would like a tubal ligation. She will get a Depo-Provera injection before discharge. -D/c today wdw Dr. Kamara Attestation Attestation: The exam, history, and the medical decision-making described in the above note were completed with the assistance of the resident physician. I reviewed and agree with the findings presented. I attest that I had a [id number] encounter with the patient on the same day, and personally performed and documented my assessment and findings in the medical record.
[2018-06-18] MEDS ORDERED: medroxyPROGESTERone Acetate Inj 150 MG/ML Syringe IM ONE (09:00)
[2018-06-18] MEDS: Acetaminophen 325 MG Tablet PO PRN (10:54)
== END 2018-06-18 11:10 | disposition home or self-care (01) ==
LOC: HOBED 09:16 → H2E 10:55 → H1EA 20:54
PROVIDERS: ADMIT Obstetrics & Gynecology; ATTEND Obstetrics & Gynecology